=== PATIENT | male | born 1995 | race Caucasian/White ===

== ENCOUNTER 2017-04-10 17:10 | Emergency (ER) | payer SELFPAY ==
[2017-04-10 17:20] VITALS: BP 100/70; PULSE 54; TEMP 98.1; BMI 23.6
[2017-04-10] MEDS ORDERED: BACITRACIN 15 GM TUBE TOPICAL OINTMENT ONE (17:51)
[2017-04-10] MEDS ORDERED: LIDOCAINE 1%/EPI 1:100000 (50 ML MULTI DOSE VIAL) ONE (17:51)
[2017-04-10] MEDS ORDERED: DIPHTH,PERTUSS(ACELL),TET 0.5 ML DISP.SYRIN IM ONE (18:12)
--- NOTE | 2017-04-10 18:15 | PDOC ---
Suture Removal/Wound Check HPI - History of Present Illness Chief Complaint: Laceration Stated Complaint: RIGHT FOOT INJURY Time Seen by Provider: 04/10/17 17:44 History Source: Yes: Patient Exam Limitations: Yes: No Limitations Treated at: [facility] ED - Previous ED Treatment Type of procedure performed on last visit: Yes: Laceration Repair Tetanus Immunization: Yes: Last Tetanus >10 yrs ago Antibiotics Prescribed: No - Onset of Previous Treatment Comment:: 04/10/17 18:15 Patient while at work, working construction and drywalling. Fell against a sharp edge of chicken wiring incurring a laceration to the lower aspect of his right inferior. Patient states continued to work but had continued to bleed therefore came to emergency department for evaluation. Denies numbness or tingling to foot, no other injury. Uncertain as to last tetanus booster. Past History - Travel Traveled outside of the country in the last 30 days: No Close contact w/someone who was outside of country & ill: No - Past Medical History Allergies/Adverse Reactions: Allergies No Known Allergies Allergy (Verified 04/10/17 17:20) Home Medications: Ambulatory Orders NK [No Known Home Medication] 04/10/17 General: Yes: no pertinent history - Immunization History Tetanus Status: More than 5 years - Social History Smoking Status: Never smoked Suture Removal/Wound Check PE - Physical Exam Laceration/Wound Check Symptoms: reports: None Current Severity Level: None *Review of Systems - Review of Systems Able to Perform ROS?: Yes Constitutional: Yes: Symptoms Reported HEENTM: Yes: Symptoms Reported Musculoskeletal: Yes: Symptoms Reported, See HPI, Other Integumentary: Yes: Symptoms Reported Neurological: No: Symptoms reported All Other Systems: Reviewed and Negative Procedures - Laceration/Wound Repair Right Wound Length: to 2.5 cm Wound Explored: clean Wound's Depth, Shape: into muscle, linear Irrigated w/ Saline: Yes Betadine Prep: Yes Anesthesia: 1% Lidocaine w/ Epi Wound Repaired With: Sutures Suture Size/Type: 5:0 Number of Sutures: 4 (Verticle mattress) Sterile Dressing Applied: Yes Medical Decision Making - Medical Decision Making 04/10/17 18:13 Laceration to inferior right calf, approximately 2 cm in length, with small oozing type bleed. Has full range of motion of foot, able to flex and extend with good contraction of the gastrocnemius muscle. Neurovascular intact to foot. Leg laceration with small venous bleed. States with pressure and lidocaine with epinep. 4 vertical mattress sutures placed with good hemostasis. 04/10/17 18:16 04/10/17 18:17 *DC/Admit/Observation/Transfer Diagnosis at time of Disposition: Leg laceration Qualifiers: Encounter type: initial encounter Laterality: right Qualified Code(s): S81.811A - Laceration without foreign body, right lower leg, initial encounter - Discharge Dispostion Disposition: HOME Condition at time of disposition: Stable Admit: No - Patient Instructions Printed Discharge Instructions: DI for Laceration Repair Additional Instructions: Rest, elevate, avoid strenuous activity or heavy lifting until sutures are removed Leave dressing on for the next 24 hours, Then may remove dressing gently and wash area with soap and water. Reapply bacitracin ointment and dressing daily for the next 5 days On day #6 keep the wound protected and cover as needed until sutures are removed allowing wound to start to dry May use Tylenol or Motrin for pain relief Suture removal in : 12-14 Days Her tetanus/diphtheria/pertussis booster was updated today - Post Discharge Activity Work/School Note: Back to Work
== END 2017-04-10 18:23 | disposition home or self-care (01) ==
LOC: JERFT 17:10
PROC: 3E0234Z Introduction of Serum, Toxoid and Vaccine into Muscle, Percutaneous Approach (ICD-10-PCS; principal; 2017-04-10)
PROC: 0JQN0ZZ Repair Right Lower Leg Subcutaneous Tissue and Fascia, Open Approach (ICD-10-PCS; 2017-04-10)
DX: S81.811A Laceration without foreign body, right lower leg, initial encounter (principal); W01.198A Fall on same level from slipping, tripping and stumbling with subsequent striking against other object, initial encounter; Y93.H3 Activity, building and construction; Y92.61 Building [any] under construction as the place of occurrence of the external cause; Y99.0 Civilian activity done for income or pay
CPT/HCPCS: 90715; 99281-25

== ENCOUNTER 2017-04-24 15:37 | Emergency (ER) | payer SELFPAY ==
[2017-04-24 15:41] VITALS: BP 127/59; PULSE 59; TEMP 98.1; BMI 22.4
--- NOTE | 2017-04-24 15:55 | PDOC ---
Suture Removal/Wound Check HPI - History of Present Illness Chief Complaint: Suture/Staple Removal(Here) Stated Complaint: SUTURE REMOVAL Time Seen by Provider: 04/24/17 15:46 History Source: Yes: Patient Exam Limitations: Yes: No Limitations Treated at: [facility] ED Date of Last ED visit: 04/10/17 - Previous ED Treatment Type of procedure performed on last visit: Yes: Laceration Repair Tetanus Immunization: Yes: Up to Date Antibiotics Prescribed: No Past History - Past Medical History Allergies/Adverse Reactions: Allergies No Known Allergies Allergy (Verified 04/24/17 15:41) Home Medications: Ambulatory Orders NK [No Known Home Medication] 04/10/17 General: Yes: no pertinent history Surgical History: Yes: No Surgical History - Immunization History Tetanus Status: More than 5 years - Social History Smoking Status: Never smoked Suture Removal/Wound Check PE - Physical Exam Laceration/Wound Check Symptoms: reports: None Current Severity Level: None Maximum Severity Level: None Pain Localization: None *Review of Systems - Review of Systems Constitutional: No: Symptoms Reported Integumentary: Yes: Other (removed to posterior leg with good result, there is no erythema edema or secondary signs of infection mild suture irritation.). No : Symptoms Reported *DC/Admit/Observation/Transfer Diagnosis at time of Disposition: Visit for suture removal - Discharge Dispostion Disposition: HOME Condition at time of disposition: Good Admit: No - Patient Instructions Printed Discharge Instructions: DI for Suture Removal Additional Instructions: Please keep area clean and dry If any increased redness swelling or signs of infection return to ER
== END 2017-04-24 15:58 | disposition home or self-care (01) ==
LOC: JERFT 15:37
DX: Z48.02 Encounter for removal of sutures (principal)
CPT/HCPCS: 99281-25

== ENCOUNTER 2024-02-18 18:43 | Emergency (ER) | payer OTHER ==
[2024-02-18 19:00] VITALS: BP 134/75; PULSE 50; RESP 18; BMI 27.1
[2024-02-18] MEDS ORDERED: LIDOCAINE 4% PATCH TP ONE (19:46)
[2024-02-18] MEDS ORDERED: IBUPROFEN 400 MG TABLET (FP) PO ONE (19:46)
[2024-02-18] MEDS ORDERED: CYCLOBENZAPRINE HCL 10 MG TABLET (FP) ONE (19:46)
[2024-02-18] MEDS: CYCLOBENZAPRINE HCL 10 MG TABLET (FP) PO ONE (19:54)
[2024-02-18] MEDS: LIDOCAINE 5% TOPICAL PATCH TP ONE (19:54)
[2024-02-18] MEDS: IBUPROFEN 400 MG TABLET (FP) PO ONE (19:55)
[2024-02-18] MEDS ORDERED: LIDOCAINE PATCH REMOVAL MC SCH (22:00)
== END 2024-02-18 20:22 | disposition home or self-care (01) ==
LOC: JER 18:43
DX: M54.50 Low back pain, unspecified (principal); M54.2 Cervicalgia; V43.52XA Car driver injured in collision with other type car in traffic accident, initial encounter; Y92.410 Unspecified street and highway as the place of occurrence of the external cause
CPT/HCPCS: 99283-25